=== PATIENT | male | born 1960 | race American Indian/Alaskan Native ===

== ENCOUNTER 2018-04-04 12:15 | Inpatient (IN) | payer MEDICARE ==
--- NOTE | 2018-04-04 13:13 | C.PDOC ---
History Of Present Illness 58 y/o homeless male with PMH of cocaine abuse and schizophrenia presents to the ED with brother for psychiatric evaluation per psychiatrist secondary to paranoid delusions and hallucinations. Patient follows with [facility] starting on 03/29/[address] Braxton Perez who requested that pt be evaluated for psychiatric admission. Admits to sometimes hearing voices, but that are not telling him anything specific. States he wants to get his life in order and become a "respectable man". Last cocaine use yesterday, none today. Noncompliant with medications. Denies SI/HI, alcohol use, fever, chills, abdominal pain, kathia st pain, SOB, headache, or any other associated symptoms. Chief Complaint (Nursing): Psychiatric Evaluation Past Medical History Reviewed: Historical Data, Nursing Documentation, Vital Signs Vital Signs: Last Vital Signs Temp 98.1 F 04/04/18 12:22 Pulse 93 H 04/04/18 12:22 Resp 18 04/04/18 12:22 BP 132/83 04/04/18 12:22 Pulse Ox 100 04/04/18 12:22 - Medical History PMH: Arthritis, Schizophrenia Family History: States: No Known Family Hx - Social History Hx Alcohol Use: No Hx Substance Use: Yes - Immunization History Hx Tetanus Toxoid Vaccination: No Hx Influenza Vaccination: No Hx Pneumococcal Vaccination: No Review Of Systems Except As Marked, All Systems Reviewed And Found Negative. Constitutional: Negative for: Fever, Chills Eyes: Negative for: Pain, Vision Change ENT: Negative for: Ear Pain, Throat Pain, Throat Swelling Cardiovascular: Negative for: Chest Pain, Palpitations, Light Headedness Respiratory: Negative for: Cough, Shortness of Breath Gastrointestinal: Negative for: Nausea, Vomiting, Abdominal Pain Genitourinary: Negative for: Dysuria, Frequency Musculoskeletal: Negative for: Neck Pain, Shoulder Pain, Back Pain Skin: Negative for: Rash Neurological: Negative for: Weakness, Numbness, Seizures, Headache, Dizziness Psych: Positive for: Anxiety, Other (Delusions of paranoia; auditory hallucinations). Negative for: Suicidal ideation, Withdrawal Physical Exam - Physical Exam Appears: Well, Non-toxic, No Acute Distress, Unkempt Skin: Normal Color, Warm, Dry Head: Atraumatic, Normacephalic Eye(s): bilateral: Normal Inspection, PERRL, EOMI Nose: Normal Oral Mucosa: Moist Throat: Normal Neck: Normal, Normal ROM, Supple Cardiovascular: Rhythm Regular Respiratory: Normal Breath Sounds Gastrointestinal/Abdominal: Normal Exam, Soft, No Tenderness Back: Normal Inspection Extremity: Normal ROM Extremity: Bilateral: Atraumatic, Normal Color And Temperature, Normal ROM Pulses: Left Radial: Normal, Right Radial: Normal Neurological/Psych: Oriented x3, Normal Speech, Normal Cognition, Normal Motor, Normal Sensation Gait: Steady ED Course And Treatment - Laboratory Results Result Diagrams: 04/04/18 14:14 04/04/18 14:14 Lab Interpretation: Normal ECG: Viewed By Me (Reviewed by Dr. Mabry) ECG Rhythm: Sinus Rhythm ECG Interpretation: Normal Interpretation Of ECG: rate 90; NSR; normal intervals; no STEMI Rate From EC O2 Sat by Pulse Oximetry: 100 Pulse Ox Interpretation: Normal - Radiology CXR: Viewed By Me, Read By Radiologist CXR Interpretation: Yes: No Acute Disease Medical Decision Making Medical Decision Making: Initial Plan: * Crisis Eval * CBC, CMP * Acetaminophen, Salicylate * Alcohol * UDS * EKG * CXR 15:00 Patient medically cleared for psychiatric admission. 15:15 POLINA Browning evaluated patient at bedside. States patient will be admitted under Dr. Dubon for paranoid schizophrenia and cocaine abuse. Patient resting comfortably in stretcher with stable vital signs at this time. Disposition - Disposition Disposition: HOSPITALIZED Disposition Time: 15:15 Condition: STABLE - Clinical Impression Clinical Impression: Paranoid schizophrenia, Cocaine abuse
[2018-04-04 14:18] LABS: BASO # 0.1 K/uL (0.0-0.2); BASO % 0.7 % (0.0-2.0); EOS # 0.1 K/uL (0.0-0.7); EOS % 1.6 % (0.0-4.0); HEMOGLOBIN 15.3 g/dL (12.0-18.0); LYMPH # 1.5 K/uL (1.0-4.3); LYMPH % 20.4 % (20.0-40.0); MEAN CELL VOLUME 83.1 fL (80.0-94.0); MEAN CORPUSCULAR HEMOGLOBIN 27.4 pg (27.0-31.0); MEAN PLATELET VOLUME 7.3 fL (7.2-11.7); MONO # 0.4 K/uL (0.0-0.8); MONO % 6.2 % (0.0-10.0); NEUT # 5.1 K/uL (1.8-7.0); NEUT % 71.1 % (50.0-75.0); NRBC % 0.1 % (0.0-2.0); RBC 5.6 Mil/uL (4.40-5.90); RED CELL DISTRIBUTION WIDTH 14.3 % (11.5-14.5); WHITE BLOOD COUNT 7.2 K/uL (4.8-10.8)
[2018-04-04 14:23] LABS: URINE BILIRUBIN NEGATIVE (NEGATIVE); URINE BLOOD NEGATIVE (NEGATIVE); URINE CLARITY Clear (Clear); URINE COLOR Yellow (YELLOW); URINE GLUCOSE (UA) NORMAL (Normal); URINE LEUKOCYTE ESTERASE NEG Leu/uL (Negative); URINE PROTEIN NEGATIVE (NEGATIVE); URINE UROBILINOGEN NORMAL mg/dL (0.2-1.0)
[2018-04-04 14:35] LABS: ACETAMINOPHEN < 10.0 ug/mL (10.0-30.0); ALB/GLOB RATIO 1.3 (1.0-2.1); ALT/SGPT 21 U/L (21-72); AST/SGOT 22 U/L (17-59); BLOOD UREA NITROGEN 18 mg/dL (9-20); CALCIUM 9.3 mg/dl (8.6-10.4); GFR NON-AFRICAN AMERICAN > 60; LIPASE 88 U/L (23-300); SALICYLATE < 1.0 [, mg/dL 1]
[2018-04-04 14:40] LABS: BARBITURATES, UR NEGATIVE (NEGATIVE); BENZODIAZEPINES, UR NEGATIVE (NEGATIVE); OPIATES, UR NEGATIVE (NEGATIVE); PHENCYCLIDINE, UR NEGATIVE (NEGATIVE)
--- NOTE | 2018-04-04 15:01 | RAD ---
HISTORY: psych COMPARISON: No prior. TECHNIQUE: Chest, one view. FINDINGS: LUNGS: No focal consolidation. Please note that chest x-ray has limited sensitivity for the detection of pulmonary masses. PLEURA: No significant pleural effusion identified. No definite pneumothorax . CARDIOVASCULAR: Heart size appears within normal limits. Ectatic aorta. Atherosclerotic calcification of the aorta. OSSEOUS STRUCTURES: No acute osseous abnormality identified. VISUALIZED UPPER ABDOMEN: Unremarkable. OTHER FINDINGS: None. IMPRESSION: No focal consolidation. Additional findings as above.
--- NOTE | 2018-04-04 18:13 | PCM.BM ---
<Boo Mendoza - Last Filed: 04/04/18 18:10> Treatment Plan Problems - Problems identified on initial assessmt Delusional Date Initiated: 04/04/18 Time Initiated: 16:45 Assessment reference: NA Status: Active Treatment assets and liabiliti Patient Assests: ADL independent, good support system Patient Liabilities: substance abuse (Cocaine) - Milieu Protocol Maintain good personal hygiene: daily Encourage regular showers, daily Remind patient to perform daily oral care, every shift Assist patient to perform ADL's Conduct patient checks and document Observation sheet: Q15 minutes Maintain personal safety: every shift Educate patient to report safety concerns to staff, every shift Monitor environment for contraband/sharps Medication safety: Monitor for expected outcome, potential side effects: every shift, Assess barriers to learning: every shift, Assess readiness for medication education: every shift <Deborah Hook - Last Filed: 04/05/18 14:19> Family Contact Family involvement: Family/SO is involved Family contact: Patient agrees to contact - Goals for Treatment Patient goals for treatment: "[facility] Discharge/Continuing Care - Education Needs Education Needs: Patient Medication, Patient Coping Skills - Discharge Discharge Criteria: Tolerates medication w/o severe side effects, Reduction of target symptoms Discharge to:: Home - Treatment Team Participation Discussed with Family/SO: No Was Patient/Family/SO present at Treatment Team Meeting: Yes
--- NOTE | 2018-04-05 07:04 | CARD ---
APPROVED REPORT Date of service: 04/04/2018 EKG Measurement Heart [id number] <Conclusion> Normal sinus rhythm Nonspecific T wave abnormality Abnormal ECG
--- NOTE | 2018-04-05 10:31 | PCM.PSYCH ---
Initial Psychiatric Evaluation - Initial Psychiatric Evaluation Type of Admission: Voluntary Legal Status: Capacity Chief Complaint (in patient's own words): I was hearing voices to kill myself.' History of Present Illness and Precipitating Events: This is a 58 years old single -[place] male who was escorted to the ED in a very disorganized and paranoid state. As per the ED note, patient was brought in by his brother, referred by Dr. Braxton Perez from [facility], as patient was exhibiting paranoid delusions with disorganized thoughts. Patient reports a long history of schizophrenia. He reports history of multiple inpatient psychiatric hospitalizations, last discharge from [facility] 2 years ago. He reports history of follow-up with [facility], however currently is noncompliant with the treatment and follow-up. Patient appeared disheveled and unkempt. He remained a poor historian. He appeared paranoid and delusional. When asked how he ended up in the hospital, he said he was sent to the hospital by his doctor. Patient continued to have loose associations and remained circumstantial and tangential. He reports depressed mood, at times feelings of hopelessness and helplessness, poor sleep and poor appetite. He reports of auditory hallucination noncommand type and paranoid delusions that people are watching him. However he denies any suicidal ideation or any homicidal ideation. He reports his smoking cocaine and denies any other substance abuse. Past medical history None reported Current Medications: Active Medications Generic Name Dose Route Start Last Admin Trade Name Freq PRN Reason Stop Dose Admin Pneumococcal Polyvalent Vaccine 0.5 ml 04/07/18 10:00 Pneumovax 23 Vaccine IM 04/07/18 10:01 .ONCE ONE Past Psychiatric History - Past Psychiatric History Previous Treatment History: Inpatient Pertinent Medical Hx (Current Medical&Sleep Prob, Allergies): Allergies Allergy/AdvReac Type Severity Reaction Status Date / Time No Known Allergies Allergy Verified 04/04/18 13:06 Unobtainable 04/04/18 Review of Systems - Review of Systems All systems: reviewed and no additional remarkable complaints except - Psychiatric Psychiatric: Anxiety, Auditory Hallucinations, Depression, Irritability, Paranoia, Suicidal Ideation Mental Status Examination - Personal Presentation Personal Presentation: Looks stated age - Affect Affect: Constricted, Depressed - Motor Activity Motor Activity: Calm - Reliability in Providing Information Reliability in Providing Information: Poor, due to alteration in thoughts, Poor, due to altered mood - Speech Speech: Disorganized - Mood Mood: Depressed, Anxious - Formal Thought Process Formal Thought Process: Hallucinations, Delusions, Paranoia, Loosening of associations - Hallucinations/Delusions Hallucinations: Auditory Delusions: Persecution - Obsessions/Compulsions Obsessions: No Compulsions: No - Cognitive Functions Orientation: Person, Place, Situation, Time Sensorium: Alert Attention/Concentration: Attentive Abstract Thinking: [place] Estimate of Intelligence: Below average Judgement: Imparied, as evidence by: Poor judgement, Imparied, as evidence by: Lack of insight into illness - Risk Risk: Suicidal, Diminished functioning - Limitations Limitations: Living alone DSM 5 DX - DSM 5 DSM 5 Diagnosis: Schizophrenia paranoid type continues cocaine use disorder severe - Recommended/Plan of Treatment Treatment Recommendations and Plan of Treatment: Schizophrenia paranoid type continues Cocaine use disorder severe CBD Psychoeducation Supportive therapy and group therapy Risperdal 1 mg p.o. twice daily Trazodone 50 mg p.o. nightly Paxil 20 mg p.o. daily Hydroxyzine 25 mg p.o. every 6 hours as needed - Smoking Cessation Smoking Cessation Initiated: No
--- NOTE | 2018-04-06 08:20 | PCM.PYCHPN ---
Psychiatric Progress Note - Psychiatric Progress Note Patient Chief Complaint: I was hearing voices to kill myself.' Mental Status Examination - Cognitive Function Orientation: Person, Place, Situation, Time - Mood Mood: Depressed, Anxious - Affect Affect: Constricted, Depressed - Formal Thought Process Formal Thought Process: Hallucinations, Delusions, Paranoia, Loosening of associations - Homicidal Ideation Homicidal Ideation: No Goal/Treatment Plan - Goal/Treatment Plan Progress Toward Problem(s) and Goals/Treatment Plan: Schizophrenia paranoid type continues Cocaine use disorder severe CBD Psychoeducation Supportive therapy and group therapy Risperdal 1 mg p.o. twice daily Trazodone 50 mg p.o. nightly Paxil 20 mg p.o. daily Hydroxyzine 25 mg p.o. every 6 hours as needed
[2018-04-07] MEDS ORDERED: Pneumococcal 23-Valent Vaccine IM ONE (10:00)
--- NOTE | 2018-04-08 14:05 | PCM.PYCHPN ---
Psychiatric Progress Note - Psychiatric Progress Note Patient seen today, length of contact: 15 min Patient Chief Complaint: I was hearing voices to kill myself.' Medication Change: Yes Medical Record Reviewed: Yes Mental Status Examination - Cognitive Function Orientation: Person, Place, Situation, Time Memory: Intact Attention: WNL Concentration: Poor Association: Loose Fund of Knowledge: WNL - Mood Mood: Depressed, Anxious - Affect Affect: Constricted, Depressed - Speech Speech: Soft - Formal Thought Process Formal Thought Process: Hallucinations, Delusions, Paranoia, Loosening of associations - Suicidal Ideation Suicidal Ideation: No - Homicidal Ideation Homicidal Ideation: No Goal/Treatment Plan - Goal/Treatment Plan Need for Continued Stay: Discharge may exacerbated symptoms, Severe functional impairment Progress Toward Problem(s) and Goals/Treatment Plan: Schizophrenia paranoid type continues Cocaine use disorder severe CBD Psychoeducation Supportive therapy and group therapy Risperdal 2 mg p.o. twice daily Trazodone 50 mg p.o. nightly Paxil 30 mg p.o. daily Hydroxyzine 25 mg p.o. every 6 hours as needed - Smoking Cessation Smoking Cessation Initiated: No
[2018-04-09 06:22] VITALS: O2SAT 99
[2018-04-10 06:54] VITALS: BP 113/70; PULSE 64; RESP 18; TEMP 97.6
--- NOTE | 2018-04-10 10:13 | PCM.PYCHDC ---
Mental Status Examination - Mental Status Examination Orientation: Person, Place, Situation, Time Memory: Intact Mood: Neutral Affect: Constricted Speech: Soft Attention: WNL Concentration: WNL Association: WNL Fund of Knowledge: WNL Formal Thought Process: No Impairment Description of patient's judgement and insight: good, fair Psychotic Thoughts and Behaviors: denies any AVH Suicidal Ideation: No Current Homicidal Ideation?: No Discharge Summary - Discharge Note Reason for Hospitalization: This is a 58 years old single -[place] male who was escorted to the ED in a very disorganized and paranoid state. As per the ED note, patient was brought in by his brother, referred by Dr. Braxton Perez from [facility], as patient was exhibiting paranoid delusions with disorganized thoughts. Patient reports a long history of schizophrenia. He reports history of multiple inpatient psychiatric hospita lizations, last discharge from [facility] 2 years ago. He [facility], however currently is noncompliant with the treatment and follow-up. Patient appeared disheveled and unkempt. He remained a poor historian. He appeared paranoid and delusional. When asked how he ended up in the hospital, he said he was sent to the hospital by his doctor. Patient continued to have loose associations and remained circumstantial and tangential. He reports depressed mood, at times feelings of hopelessness and helplessness, poor sleep and poor appetite. He reports of auditory hallucination noncommand type and paranoid delusions that people are watching him. However he denies any suicidal ideation or any homicidal ideation. He reports his smoking cocaine and denies any other substance abuse. Consultations:: List each consultation separately and include: 1. Reason for request. 2. Findings. 3. Follow-up Summary of Hospital Course include:: 1. Description of specific treatment plan utilized for patients during their course of treatmen. 2. Summarize the time- course for resolution of acute symptoms and/or regressed behaviors. 3. Describe issues identified and worked on during hospitalization. 4. Describe medication utilized. 5. Describe medical problems identified and treated. 6. Reassessment of suicide risk Summary of Hospital Course: This is a 58 years old single -[place] male who was escorted to the ED in a very disorganized and paranoid state. As per the ED note, patient was brought in by his brother, referred by Dr. Braxton Perez from [facility], as patient was exhibiting paranoid delusions with disorganized thoughts. Patient reports a long history of schizophrenia. He reports history of multiple inpatient psychiatric hospitalizations, last discharge from [facility] 2 years ago. He reports [facility], however currently is noncompliant with the treatment and follow-up. Patient appeared disheveled and unkempt. He remained a poor historian. He appeared paranoid and delusional. When asked how he ended up in the hospital, he said he was sent to the hospital by his doctor. Patient continued to have loose associations and remained circumstantial and tangential. He reports depressed mood, at times feelings of hopelessness and helplessness, poor sleep and poor appetite. He reports of auditory hallucination noncommand type and paranoid delusions that people are watching him. However he denies any suicidal ideation or any homicidal ideation. He reports his smoking cocaine and denies any other substance abuse. Past medical history None reported - Final Diagnosis (DSM 5) Condition upon Discharge: STABLE Disposition: HOME/ ROUTINE Follow-up Treatment Plan: Schizophrenia paranoid type continues Cocaine use disorder severe CBD Psychoeducation Supportive therapy and group therapy Risperdal 2 mg p.o. twice daily Trazodone 50 mg p.o. nightly Paxil 30 mg p.o. daily Hydroxyzine 25 mg p.o. every 6 hours as needed Prescriptions/Medication Reconciliation: PARoxetine [Paxil] 30 mg PO DAILY #30 tab risperiDONE [RisperDAL Tab] 2 mg PO BID #60 tab traZODone [Desyrel] 50 mg PO HS #30 tab
--- NOTE | 2018-04-10 10:14 | PCM.PYCHPN ---
Psychiatric Progress Note - Psychiatric Progress Note Patient seen today, length of contact: 15 min Patient Chief Complaint: I was hearing voices to kill myself.' Medication Change: Yes Medical Record Reviewed: Yes Mental Status Examination - Cognitive Function Orientation: Person, Place, Situation, Time Memory: Intact Attention: WNL Concentration: Poor Association: WNL Fund of Knowledge: Poor - Mood Mood: Neutral - Affect Affect: Constricted - Speech Speech: Soft - Formal Thought Process Formal Thought Process: No Impairment - Suicidal Ideation Suicidal Ideation: No - Homicidal Ideation Homicidal Ideation: No Goal/Treatment Plan - Goal/Treatment Plan Need for Continued Stay: Discharge may exacerbated symptoms, Severe functional impairment Progress Toward Problem(s) and Goals/Treatment Plan: Schizophrenia paranoid type continues Cocaine use disorder severe CBD Psychoeducation Supportive therapy and group therapy Risperdal 2 mg p.o. twice daily Trazodone 50 mg p.o. nightly Paxil 30 mg p.o. daily Hydroxyzine 25 mg p.o. every 6 hours as needed
== END 2018-04-10 10:54 | disposition home or self-care (01) | DRG 885 ==
LOC: C.ER 12:15 → C.5E 15:28
PROVIDERS: ADMIT Psychiatry & Neurology Psychiatry; ATTEND Psychiatry & Neurology Psychiatry
PROC: GZ3ZZZZ Medication Management (ICD-10-PCS; principal; 2018-04-04)
PROC: GZHZZZZ Group Psychotherapy (ICD-10-PCS; 2018-04-04)
PROC: GZ56ZZZ Individual Psychotherapy, Supportive (ICD-10-PCS; 2018-04-04)
DX: F20.0 Paranoid schizophrenia (principal); F14.20 Cocaine dependence, uncomplicated; F32.9 Major depressive disorder, single episode, unspecified; R63.0 Anorexia; Z91.19 Patient's noncompliance with other medical treatment and regimen